=== PATIENT | male | born 1970 | race African-American/Black ===

== ENCOUNTER 2022-01-21 05:52 | Observation (INO) | payer OTHER ==
[~2022-01-21] VITALS: Ht 175.3 cm; Wt 81.6 kg
[2022-01-21 06:45] LABS: HEMOGLOBIN 14.2 gm/dl (14.0-17.5); RED BLOOD COUNT 4.48 M/UL (4.20-5.50); WHITE BLOOD COUNT 5.6 K/UL (4.5-11.0)
[2022-01-21 07:11] LABS: BUN/CREATININE RATIO 12 (0-10)
[2022-01-21] MEDS ORDERED: NOVOLIN R100 UNIT/1 INJ (11:27)
[2022-01-21] MEDS ORDERED: LANTUS100 UNIT/1 SQ (11:27)
[2022-01-22 02:35] LABS: HEMOGLOBIN 13.3 gm/dl (14.0-17.5); RED BLOOD COUNT 4.23 M/UL (4.20-5.50); WHITE BLOOD COUNT 5.6 K/UL (4.5-11.0)
[2022-01-22 03:03] LABS: BUN/CREATININE RATIO 14 (0-10)
[2022-01-23 05:24] LABS: HEMOGLOBIN 13.8 gm/dl (14.0-17.5); RED BLOOD COUNT 4.35 M/UL (4.20-5.50); WHITE BLOOD COUNT 4.6 K/UL (4.5-11.0)
[2022-01-23 05:59] LABS: BUN/CREATININE RATIO 13 (0-10)
--- NOTE | 2022-01-23 08:58 | NUR ---
PT OFF UNIT TO [facility]
--- NOTE | 2022-01-23 10:00 | NUR ---
PT RETURNED FROM [facility], HE HAS A RIGHT RADIAL TR BAND. NO BLEEDING OR HEMATOMA NOTED , HE HAS 14ML AIR IN BALLOON. DENIES PAIN AT THIS TIME. HE WILL BE TRANSFERRED TO [facility].
[2022-01-23] MEDS ORDERED: LISINOPRIL10 MG PO (12:09)
[2022-01-23] MEDS ORDERED: CARVEDILOL3.125 MG PO (12:09)
[2022-01-23] MEDS ORDERED: ASPIRIN EC81 MG PO (12:09)
--- NOTE | 2022-01-23 12:41 | NUR ---
REPORT CALLED TO [facility]. AWAITING EMS
--- NOTE | 2022-01-23 12:44 | NUR ---
POST TR BAND AIR IS OUT NO BLEEDING NOTED. GOOOD PULSES AND FINGERS LOOK GOOD, HE IS RESTING AT [facility] AWAITING EMS
== END 2022-01-23 14:02 | disposition other institution (70) ==
LOC: ER1 05:52 → M/S 08:16 → CDU 08:16 → M/S 15:33
PROVIDERS: Internal Medicine Cardiovascular Disease; Physician Assistant; Physician Assistant Medical; ADMIT Internal Medicine
DX: R07.89 Other chest pain (principal); I11.0 Hypertensive heart disease with heart failure; I50.22 Chronic systolic (congestive) heart failure; E87.6 Hypokalemia; I25.10 Atherosclerotic heart disease of native coronary artery without angina pectoris; I25.5 Ischemic cardiomyopathy; M62.82 Rhabdomyolysis; E11.9 Type 2 diabetes mellitus without complications; I44.7 Left bundle-branch block, unspecified; I16.0 Hypertensive urgency; E78.5 Hyperlipidemia, unspecified; S32.9XXA Fracture of unspecified parts of lumbosacral spine and pelvis, initial encounter for closed fracture; Z91.19 Patient's noncompliance with other medical treatment and regimen; Z20.822 Contact with and (suspected) exposure to COVID-19
CPT/HCPCS: ECHO; 36415; 71045; 78452; 80048; 80053; 82550; 82553; 82962; 83735; 84132; 84484; 85025; 85379; 93005; 93017; 93306; 93970; 96372; 96374; 99152; 99285; A9502; C1769; C1894; G0378; J1644; J1650; J2250; J2785; J3010; J7040; Q9967; U0002

== ENCOUNTER 2022-02-20 12:57 | Observation (INO) | payer OTHER ==
[~2022-02-20] VITALS: Ht 175.3 cm; Wt 77.6 kg
[~2022-02-20 12:57] MED LIST: ASPIRIN EC81 MG PO; CARVEDILOL3.125 MG PO; LANTUS100 UNIT/1 SQ; LISINOPRIL10 MG PO; NOVOLIN R100 UNIT/1 INJ
[2022-02-20 13:20] LABS: HEMOGLOBIN 10.2 gm/dl (14.0-17.5); RED BLOOD COUNT 3.38 M/UL (4.20-5.50); WHITE BLOOD COUNT 5.8 K/UL (4.5-11.0)
[2022-02-20 13:47] LABS: BUN/CREATININE RATIO 8 (0-10)
[2022-02-21 01:23] LABS: HEMOGLOBIN 9.7 gm/dl (14.0-17.5); RED BLOOD COUNT 3.28 M/UL (4.20-5.50); WHITE BLOOD COUNT 4.8 K/UL (4.5-11.0)
[2022-02-21 01:33] LABS: BUN/CREATININE RATIO 10 (0-10)
[2022-02-21] MEDS ORDERED: IBUPROFEN400 MG PO (09:50)
[2022-02-21] MEDS ORDERED: ATORVASTATIN CA20 MG PO (10:03)
[2022-02-24] MEDS ORDERED: PLAVIX75 MG PO (11:20)
[2022-02-24] MEDS ORDERED: IBUPROFEN400 MG PO (11:20)
[2022-02-24] MEDS ORDERED: LOPRESSOR 25 MG25 MG PO (11:21)
[2022-02-24] MEDS ORDERED: LIPITOR40 MG PO (11:21)
[2022-02-24] MEDS ORDERED: NOVOLIN R100 UNIT/1 INJ (11:23)
[2022-02-24] MEDS ORDERED: LANTUS100 UNIT/1 SQ (11:24)
[2022-02-24] MEDS ORDERED: EUCERIN CREME TOP (11:26)
[2022-02-24] MEDS ORDERED: TYLENOL325 MG PO (17:35)
[2022-02-24] MEDS ORDERED: LASIX TAB 20 MG20 MG PO (17:35)
[2022-02-24] MEDS ORDERED: ASPIRIN EC81 MG PO (17:35)
[2022-02-24] MEDS ORDERED: NITROSTAT0.4 MG SL (17:35)
[2022-02-24] MEDS ORDERED: K-TAB ER10 MEQ PO (17:35)
[2022-02-24] MEDS ORDERED: OMNICEF 300 MG300 MG PO (18:07)
[2022-02-24] MEDS ORDERED: COMBIVENT RESPIM4 GM INH (18:07)
[2022-02-24] MEDS ORDERED: DOXYCYCLINE HY100 M2 PO (18:07)
[2022-02-24] MEDS ORDERED: PROTONIX40 MG PO (18:13)
[2022-02-24] MEDS ORDERED: COZAAR25 MG PO (18:16)
== END 2022-02-21 11:51 ==
LOC: ER1 12:57 → CDU 14:42 → M/S 17:44
PROVIDERS: Family Medicine; Physician Assistant; ADMIT Internal Medicine
PROC: 0W9B30Z Drainage of Left Pleural Cavity with Drainage Device, Percutaneous Approach (ICD-10-PCS; principal; 2022-02-21)
DX: J90 Pleural effusion, not elsewhere classified (principal); I25.10 Atherosclerotic heart disease of native coronary artery without angina pectoris; I25.5 Ischemic cardiomyopathy; I10 Essential (primary) hypertension; E78.5 Hyperlipidemia, unspecified; E11.9 Type 2 diabetes mellitus without complications; I44.7 Left bundle-branch block, unspecified; R91.1 Solitary pulmonary nodule; D64.89 Other specified anemias; Z95.1 Presence of aortocoronary bypass graft; Z95.5 Presence of coronary angioplasty implant and graft; Z79.82 Long term (current) use of aspirin; Z79.4 Long term (current) use of insulin; Z79.2 Long term (current) use of antibiotics; Z79.899 Other long term (current) drug therapy; Z88.2 Allergy status to sulfonamides
CPT/HCPCS: 36415; 71045; 80048; 80053; 82550; 82553; 82962; 83735; 83880; 84484; 85025; 85379; 85652; 86140; 87040; 87205; 93005; 94640; 94664; 94760; 96372; 96374; 96375; 96376; 99285; G0378; J0692; J1650; J1940; J3370; J7070; Q9967